=== PATIENT | female | born 1955 | race Caucasian/White ===

== ENCOUNTER 2017-07-05 15:58 | Outpatient (CLI) ==
--- NOTE | 2017-07-05 16:49 | US ---
Exam: Left lower extremity venous ultrasound HISTORY: left lower extremity pain, swelling and tenderness Procedures: Transverse and longitudinal real time prince scale echograms and color Doppler images of the left lower extremity were obtained. Segmental evaluation was performed of the common femoral, d eep femoral, superficial femoral, popliteal, peroneal and anterior and posterior tibial veins. Ther e is normal flow and compressibility. There is normal response to augmentation. There is a 4.8 cm x 6.6 cm x 2.6 cm hypoechoic collection in the left popliteal fossa. This demonstrates increased thr ough transmission with no internal color flow. IMPRESSION: There is no evidence of deep venous thrombosis identified at the levels examined in the left lower extremity. Probable Tucker's cyst in the popliteal fossa.
== END 2017-07-05 15:59 | disposition home or self-care (01) ==
LOC: RAD 15:58
PROVIDERS: ATTEND Nurse Practitioner
DX: M79.662 Pain in left lower leg (principal); M79.89 Other specified soft tissue disorders

== ENCOUNTER 2017-09-12 12:53 | Outpatient (CLI) ==
--- NOTE | 2017-09-13 11:57 | MAMMO ---
EXAM: Bilateral digital screening mammogram (2-D and 3-D) History: Screening Comparison: Bilateral mammogram 03/16/2015 Findings: MLO and CC views of bilateral breasts demonstrate scattered fibroglandular breast parenchy ma. CAD was reviewed by the radiologist. Tomosynthesis was performed. There are no dominant masses, no suspicious microcalcifications and no architectural distortions Impression: Stable negative mammogram. Recommend followup routine screening mammography in 1 year. BIRADS 1
== END 2017-09-12 12:54 | disposition home or self-care (01) ==
LOC: RAD 12:53
PROVIDERS: ATTEND Physician Assistant
DX: Z12.31 Encounter for screening mammogram for malignant neoplasm of breast (principal)
CPT/HCPCS: 77067

== ENCOUNTER 2018-09-16 08:17 | Outpatient (CLI) ==
--- NOTE | 2018-09-17 09:27 | MAMMO ---
EXAM: Bilateral digital screening mammogram (2-D and 3-D) History: Screening Comparison: Bilateral mammogram 09/12/2017 Findings: MLO and CC views of bilateral breasts demonstrate scattered fibroglandular breast parenchy ma. CAD was reviewed by the radiologist. Tomosynthesis was performed. 0.9 cm mass within the upper- outer quadrant of the right breast. Stable benign bilateral breast calcifications. Impression: Indeterminate upper-outer quadrant right breast mass. Recommend further evaluation with spot compression views and possible ultrasound. BIRADS 0
== END 2018-09-16 08:18 | disposition home or self-care (01) ==
LOC: RAD 08:17
PROVIDERS: ATTEND Nurse Practitioner
DX: Z12.31 Encounter for screening mammogram for malignant neoplasm of breast (principal)

== ENCOUNTER 2018-09-26 09:40 | Outpatient (CLI) | payer OTHER ==
--- NOTE | 2018-09-26 10:30 | MAMMO ---
EXAM: Right digital diagnostic mammogram (2-D and 3-D) History: Right breast mass. Comparison: Bilateral mammogram 09/16/2018 Findings: Right breast density is scattered. Additional views of the right breast confirm the upper -outer quadrant right breast mass. No suspicious microcalcifications. Impression: Indeterminate right upper outer quadrant right breast mass. Recommend further evaluatio n with ultrasound. BIRADS 0
--- NOTE | 2018-09-26 10:54 | US ---
EXAM: Right breast ultrasound. History: Right breast mass. Comparison: Right diagnostic mammogram 09/26/2018 Technique: Multiple sonographic images through the right breast were obtained. Color duplex Doppler was used to interrogate vascular flow. Findings: At 9 o'clock 7 cm from nipple there is a 0.7 cm x 0.3 cm x 0.8 cm mixed echogenic well-circ umscribed mass. This correlates with mammography. Impression: 9 o'clock right breast mass resembles a complicated cyst or cyst cluster and is probably benign. Recommend follow-up right mammogram and right breast ultrasound in 6 months to document stab ility. BIRADS 3
== END 2018-09-26 09:41 | disposition home or self-care (01) ==
LOC: RAD 09:40
PROVIDERS: ATTEND Nurse Practitioner
DX: N63.11 Unspecified lump in the right breast, upper outer quadrant (principal)